=== PATIENT | female | born 1985 | race Caucasian/White ===

== ENCOUNTER 2016-10-17 18:14 | Emergency (ER) | payer SELFPAY ==
[~2016-10-17] VITALS: Ht 165.1 cm; Wt 92.1 kg
[2016-10-17 18:31] VITALS: BP 137/67
--- NOTE | 2016-10-17 19:22 | PHYS DOC ---
Past Medical History Past Medical History: Bronchitis Past Surgical History: Appendectomy, Cholecystectomy, Alcohol Use: None Drug Use: None Adult General Chief Complaint Chief Complaint: DENTAL PROBLEM HPI HPI Patient is a 31 year old female presents to emergency department stating that she has having right upper dental pain and discomfort that radiates up into her eye. She states that she has had photophobia. She states that she's had this going on for the last few days although the phobophobia started today. Patient states she's taken Tylenol and ibuprofen for the pain and discomfort without any relief. She states that she tried to eat some roast tonight and she is developed severe pain and discomfort. Patient denies any fever, chills or any nausea or vomiting. Patient states she has increased pain when opening and closing her mouth. Review of Systems Review of Systems Constitutional: Denies fever or chills [] Eyes: Denies change in visual acuity, redness, or eye pain [] HENT: Denies nasal congestion or sore throat. Dental pain Respiratory: Denies cough or shortness of breath [] Cardiovascular: No additional information not addressed in HPI [] GI: Denies abdominal pain, nausea, vomiting, bloody stools or diarrhea [] : Denies dysuria or hematuria [] Musculoskeletal: Denies back pain or joint pain [] Integument: Denies rash or skin lesions [] Neurologic: headache, denies focal weakness or sensory changes [] Endocrine: Denies polyuria or polydipsia [] Current Medications Current Medications Current Medications Medications (Trade) Dose Ordered Sig/Anna Start Time Stop Time Status Last Admin Dose Admin Diphenhydramine HCl (Benadryl) 25 mg 1X ONCE 10/17/16 19:45 10/17/16 19:46 DC 10/17/16 19:52 25 MG Ketorolac Tromethamine (Toradol) 10 mg 1X ONCE 10/17/16 19:45 10/17/16 19:46 DC 10/17/16 19:52 10 MG Metoclopramide HCl (Reglan) 10 mg 1X ONCE 10/17/16 19:45 10/17/16 19:46 DC 10/17/16 19:53 10 MG Allergies Allergies Allergies Coded Allergies Type Severity Reaction Last Updated Verified No Known Drug Allergies 10/17/16 No Physical Exam Physical Exam Constitutional: Well developed, well nourished, no acute distress, non-toxic appearance. [] HENT: Normocephalic, atraumatic, bilateral external ears normal, oropharynx moist, no oral exudates, nose normal. Bilateral tympanic membranes appear to be normal. Patient has increased sensitivity to the right TMJ area. Eyes: PERRLA, EOMI, conjunctiva normal, no discharge. [] Neck: Normal range of motion, no tenderness, supple, no stridor. [] Cardiovascular:Heart rate regular rhythm, no murmur [] Lungs & Thorax: Bilateral breath sounds clear to auscultation [] Skin: Warm, dry, no erythema, no rash. [] Back: No tenderness Extremities: No tenderness, no cyanosis, no clubbing, ROM intact, no edema. [] Neurologic: Alert and oriented X 3, normal motor function, normal sensory function, no focal deficits noted. Cranial nerves II through XII intact. Psychologic: Affect normal, judgement normal, mood normal. [] Current Patient Data Vital Signs Vital Signs Date Time Temp Pulse Resp B/P (MAP) Pulse Ox O2 Delivery O2 Flow Rate FiO2 10/17/16 18:31 98.0 98 18 98 Room Air 98.0 EKG EKG [] Radiology/Procedures Radiology/Procedures [facility] [address] [place] [address] IMAGING REPORT Signed PATIENT: ZAYDA PUGA ACCOUNT: [id number] : 1985 LOCATION: ER AGE: 31 SEX: F EXAM STATUS: REG ER ORD. PHYSICIAN: ZAYDA SARMIENTO APRN REASON: headache, photophobia PROCEDURE: CT HEAD WO CONTRAST EXAM: CT HEAD WITHOUT CONTRAST. HISTORY: Severe headache, photophobia. TECHNIQUE: Computed tomography of the head was performed without intravenous contrast. COMPARISON: None. FINDINGS: There is no intracranial hemorrhage. Jackson-white differentiation is preserved. The ventricles are normal in size and position. There is moderate to severe mucosal thickening and a small air-fluid level in the right maxillary sinus. The orbits are unremarkable. The temporal bones are unremarkable. The calvarium reveals no suspicious lesions. IMPRESSION: 1. No acute intracranial findings. 2. Acute on chronic right maxillary sinus disease. *One or more of the following individualized dose reduction techniques were utilized for this examination: 1. Automated exposure control. 2. Adjustment of the mA and/or kV according to patient size. 3. Use of iterative reconstruction technique. Electronically signed by: Alyssa Rodriges MD (10/17/2016 7:57 PM) [facility] DICTATED and SIGNED BY: NILA RODRIGES MD DATE: 10/17/161954 CC: ZAYDA SARMIENTO APRN; NO PCP ~ [] Course & Med Decision Making Course & Med Decision Making Pertinent Labs and Imaging studies reviewed. (See chart for details) Patient's CT scan was positive for acute on chronic sinusitis. Patient will be discharged home with recommendations to take Augmentin as prescribed. Patient was provided with Reglan, Toradol, Benadryl here in the emergency department. She was also noted to have some muscle spasms on the right side of her face and neck area. She'll be provided with Flexeril to take at home to help with the spasms. She was instructed that this medication will cause drowsiness do not take any be alert and oriented. Patient agrees with discharge instructions treatment regimens and follow-up recommendations which she was recommended to follow-up in the next week. Signs symptoms to return back to emergency department as been provided. [] Dragon Disclaimer Dragon Disclaimer This electronic medical record was generated, in whole or in part, using a voice recognition dictation system. Departure Departure Impression: Primary Impression: Acute bacterial sinusitis Disposition: 01 HOME, SELF-CARE Condition: STABLE Referrals: NO PCP (PCP) Patient Instructions: Sinusitis, [id number] Additional Instructions: Activity as tolerated. Ibuprofen and Tylenol for pain and discomfort. He may also try some Sudafed over -the-counter to help with the pressure feeling. Antibiotics as prescribed. Flexeril will cause drowsiness do not take any be alert and oriented. This will help with muscle spasms. Follow-up with the primary care physician next week. Return back to emergency prior signs symptoms of become worse. Scripts Cyclobenzaprine Hcl (CYCLOBENZAPRINE HCL) 10 Mg Tablet 10 MG PO TID Y for MUSCLE SPASMS, #30 TAB Prov: ZAYDA SARMIENTO APRN 10/17/16 Amoxicillin/Potassium Clav (AUGMENTIN 875-125 TABLET) 1 Each Tablet 1 TAB PO BID, #20 TAB Prov: ZAYDA SARMIENTO APRN 10/17/16 ZAYDA SARMIENTO APRN Oct 17, 2016 19:22
[2016-10-17] MEDS ORDERED: diphenhydrAMINE HCL 25 MG CAPSULE PO ONE (19:45)
[2016-10-17] MEDS ORDERED: METOCLOPRAMIDE 10 MG TABLET. PO ONE (19:45)
[2016-10-17] MEDS ORDERED: KETOROLAC TROMETHAMINE 10 MG TABLET PO ONE (19:45)
--- NOTE | 2016-10-17 20:01 | RAD ---
EXAM: CT HEAD WITHOUT CONTRAST. HISTORY: Severe headache, photophobia. TECHNIQUE: Computed tomography of the head was performed without intravenous contrast. COMPARISON: None. FINDINGS: There is no intracranial hemorrhage. Jackson-white differentiation is preserved. The ventricles are normal in size and position. There is moderate to severe mucosal thickening and a small air-fluid level in the right maxillary sinus. The orbits are unremarkable. The temporal bones are unremarkable. The calvarium reveals no suspicious lesions. IMPRESSION: 1. No acute intracranial findings. 2. Acute on chronic right maxillary sinus disease. *One or more of the following individualized dose reduction techniques were utilized for this examination: 1. Automated exposure control. 2. Adjustment of the mA and/or kV according to patient size. 3. Use of iterative reconstruction technique. Electronically signed by: Alyssa Rodriges MD (10/17/2016 7:57 PM) [facility]
[2016-10-17] MEDS ORDERED: CYCL10TA2 PO (20:11)
[2016-10-17] MEDS ORDERED: AMOX1TAB61 PO (20:11)
== END 2016-10-17 20:21 | disposition home or self-care (01) ==
LOC: ER 18:14
DX: J01.80 Other acute sinusitis (principal); B97.89 Other viral agents as the cause of diseases classified elsewhere; K08.89 Other specified disorders of teeth and supporting structures
CPT/HCPCS: 70450; 99284; J8597; Q0163